=== PATIENT | female | born 1945 | race Caucasian/White ===

== ENCOUNTER → 2016-12-14 | Outpatient (CLI) | payer MEDICARE, BC ==
[~2016-12-14] MED LIST: AMLO2.5T2 PO; CLON0.5T3 PO; ESCI5TAB24 PO; METO25TA9 PO; TOLT1TAB2 PO
--- NOTE | 2016-12-14 10:35 | KCIC ---
EXAM: Bilateral digital screening mammogram. HISTORY: 71-year-old female presents for screening mammography. COMPARISON: 12/14/2015 and 11/23/2014 TECHNIQUE: Full field digital craniocaudal and mediolateral oblique views of both breasts are obtained. Computer-aided detection is applied. FINDINGS: Breast parenchymal composition: Level B - Scattered fibroglandular densities. There is no new suspicious mass, calcification or architectural distortion within either breast. IMPRESSION: BI-RADS Category 2: Benign findings. Annual mammography is recommended. This study was interpreted with the benefit of Computerized Aided Detection (CAD). Mammography is not 100% sensitive in detecting breast cancer. Therefore, a self breast exam and a clinical breast exam are very important. A negative mammogram does not negate a clinically suspicious finding and should not result in a delay in biopsying a clinically suspicious abnormality. The patient information was entered into the reminder system with a target for her next mammogram. Electronically signed by: Roro Bustamante (Dec 14, 2016 10:34:15)
--- NOTE | 2016-12-14 14:01 | KCIC ---
PROCEDURE Bone density. HISTORY Osteopenia, vitamin-D deficiency. Loss of height. Postmenopausal. COMPARISON Bone density 03/30/2014. FINDINGS Dual photon densitometry of the lumbar spine and left proximal femur is performed. Bone mineral density values are measured in grams per cm2. Lumbar spine, L1-L4, total bone mineral density is 0.996, T-score -0.5, Z-score 1.9. Bone mineral density has increased by 6.5 percent since the prior study. Left total femur bone mineral density 0.804, T-score -1.1, Z-score 0.6. No change from prior study. World Health Organization criteria for bone mineral density interpretation classify patient's as normal (T-score at or above -1.0), osteopenic (T-score between -1 and -2.5), or osteoporotic (T-score at or below -2.5). IMPRESSION Normal bone mineral density of the lumbar spine and mild osteopenia of the left femur. Electronically signed by: Tanvir Henson MD (Dec 14, 2016 14:00:18)
== END | disposition home or self-care (01) ==
LOC: KCIC MAMMO 09:32
PROVIDERS: ATTEND Family Medicine
DX: Z12.31 Encounter for screening mammogram for malignant neoplasm of breast (principal); Z78.0 Asymptomatic menopausal state; E55.9 Vitamin D deficiency, unspecified; R29.890 Loss of height; M85.88 Other specified disorders of bone density and structure, other site
CPT/HCPCS: 77080; G0202; 77067

== ENCOUNTER → 2016-12-27 | Day surgery (SDC) | payer MEDICARE, BC ==
[~2016-12-27] MED LIST changes: +ACET325T9 PO; +ASPI-482 PO; +ATOR10TA PO; +CALC-77 PO; +CLON0.25 PO; +DICY10CA53 PO; +DOCU-27 PO; +FENTANYL PF 100 MCG/2 ML VIAL. IV PRN; +HYDROMORPHONE 2 MG/ML VIAL. IV PRN; +IV RINGERS,LACTATED 1000ML 1,000 ML IV SCH; +LIDOCAINE 1% 1 ML SYRINGE. ID PRN; +LIDOCAINE 2% PF Vial for OR 5 ML VIAL. ONE; +MIRT30TA3 PO; +MORPHINE SULFATE 2 MG/ML DISP.SYRIN. IV PRN; +OMEG500C PO; +PROCHLORPERAZINE 10 MG/2 ML VIAL. IV PRN; +PROPOFOL 60 ML IV ONE; +RANI300T3 PO; +[UNRECOGNIZED DRUG - OTHER]; +mobic
[2016-12-27 11:55] VITALS: BP 136/66
--- NOTE | 2016-12-28 14:32 | PATHOLOGY ---
PATHOLOGY REPORT * * * * * * * * FINAL DIAGNOSIS: A. Colon biopsy, transverse colon: - Suggestive of microscopic (lymphocytic) colitis. B. Small bowel biopsy: - Segments of small intestine mucosa showing no significant pathologic abnormalities and gastric mucosa showing mild chronic inflammation. C. Gastric biopsy, antrum: - Chronic gastritis, mild. D. Esophageal biopsy, distal esophagus: - Segments of hyperplastic squamous esophageal mucosa consistent with reflux esophagitis. E. Esophageal biopsy, middle esophagus: - Segments of hyperplastic squamous esophageal mucosa consistent with reflux esophagitis. COMMENT: Sections of the transverse colon biopsy reveal segments of colonic mucosa showing mild chronic active inflammation without crypt architectural distortion or collagen deposition. Intraepithelial lymphocytes are increased. The changes are consistent with microscopic colitis, however, the diagnosis requires clinicopathologic correlation. Sections of the small bowel biopsy reveal segments of small intestine mucosa showing normal mucosal villi with no sprue-like changes or significant inflammatory changes. There are also segments of gastric mucosa showing mild chronic inflammation. Sections of the gastric antral biopsy show congestion and mild chronic inflammation. An immunoperoxidase stain for Helicobacter is obtained. No Helicobacter organisms are identified. Sections of the distal and middle esophageal biopsies appear similar and reveal segments of focally tangentially oriented hyperplastic squamous esophageal mucosa. The findings are consistent with reflux esophagitis. There is no evidence of Perez's change, dysplasia, or malignancy. (JPM:mgrae; d/t: 12/28/16) Special Stain Performed: Immunoperoxidase stain for Helicobacter (C1) REPORT ELECTRONICALLY SIGNED BY: Hernandez Lentz M.D. DATE/TIME: 12/28/2016 14:31 * * * * * * * * GROSS PATHOLOGY: A. Received in formalin, labeled "Frank Ewing-transverse colon biopsy" are 3 barrow-brown tissue fragments measuring 0.7 x 0. 3 x 0.1 cm in aggregate. Total A1. B. Received in formalin, labeled "Frank Ewing-small bowel biopsy" are 4 barrow-brown tissue fragments measuring 0.7 x 0.3 x 0.1 cm in aggregate. Total B1. C. Received in formalin, labeled " Frank Ewing-gastric antrum biopsy" are 2 barrow-brown tissue fragments measuring 0.4 x 0.3 x 0.1 cm in aggregate. Total C1. HP stain requested. D. Received in formalin, labeled " Frank Ewing-distal esophagus biopsy" are 2 barrow-brown tissue fragments measuring 0.4 x 0.2 x 0.1 cm in aggregate. Total D1. E. Received in formalin, labeled " Frank Ewing-mid esophagus biopsy" are 3 friable barrow-brown tissue fragments measuring 0.6 x 0.2 x 0.1 cm in aggregate. Total E1. ([facility]; 12/27/2016) INITIAL CPT CODE(S): A; 71920 B; 24196 C; 12064, 76899 D; 20925 E; 48506 Professional services performed by [facility] at [address] [address] Technical services performed by [facility] at [address] [place] [address], [address], [place] [address]. SPECIMEN(S) RECEIVED: A.Transverse colon biopsy B.Small bowel biopsy C.Gastric antrum D.Distal esophagus E.Mid esophagus CLINICAL HISTORY: CT abnormal, EGD dysphagia PATIENT: FRANK EWING /AGE: 503/27/1945 (Age: 71) PATIENT #: [id number] ALT CASE #: SPECIMEN COLLECTION DATE: 12/27/2016 SPECIMEN RECEIVED DATE: 12/27/2016 [facility] - [address] [place] [address] - PHONE: [phone] * * * END OF REPORT * * *
== END | disposition home or self-care (01) ==
LOC: ENDOS 09:35
PROVIDERS: ATTEND Internal Medicine Gastroenterology
DX: K64.0 First degree hemorrhoids (principal); K22.10 Ulcer of esophagus without bleeding; K44.9 Diaphragmatic hernia without obstruction or gangrene; Z72.89 Other problems related to lifestyle; Z79.82 Long term (current) use of aspirin
CPT/HCPCS: 43239; 45380; 88305; 88342; J2704; G0641

== ENCOUNTER → 2017-05-16 | Day surgery (SDC) | payer MEDICARE ==
[~2017-05-16] MED LIST changes: +AMLO5TAB2 PO; +DOCU-109 PO; -DOCU-27 PO; -ESCI5TAB24 PO; +ESCITALOPRAM OXA5 MG PO; -FENTANYL PF 100 MCG/2 ML VIAL. IV PRN; -HYDROMORPHONE 2 MG/ML VIAL. IV PRN; +HYDROmorphone 2 MG/ML VIAL IV PRN; +METO100T2 PO; +ONDANSETRON PF 4 MG/2 ML VIAL. IV PRN; +PROPOFOL 40 ML IV ONE; -PROPOFOL 60 ML IV ONE; +RANI150T6 PO; +ePHEDrine PF IN SALINE 50 MG/5 ML DISP.SYRIN IV ONE; +fentaNYL PF VIAL 100 MCG/2 ML VIAL IV PRN
[2017-05-16 10:02] VITALS: BP 148/77
--- NOTE | 2017-05-17 14:42 | PATHOLOGY ---
PATHOLOGY REPORT * * * * * * * * FINAL DIAGNOSIS: Esophageal biopsies, distal esophagus: - Segments of hyperplastic squamous esophageal mucosa consistent with reflux esophagitis. (JPM:hiram; 05/17/2017) COMMENT: Sections of the distal esophageal biopsy reveal segments of hyperplastic squamous esophageal mucosa. There are a few intraepithelial eosinophils. The findings are consistent with reflux esophagitis. There is no evidence of Perez's change, dysplasia or malignancy. (JPM:hiram; 05/17/2017) REPORT ELECTRONICALLY SIGNED BY: Hernandez Lentz M.D. DATE/TIME: 05/17/2017 14:41 * * * * * * * * GROSS PATHOLOGY: Received in formalin labeled "Frank Ewing, distal esophagus," are two segments of barrow soft tissue measuring 0.1 and 0.3 cm in maximum dimension. The specimen is submitted entirely in cassette A1. (J[facility]; 05/16/17) INITIAL CPT CODE(S): A; 37265 Professional services performed [place] [address] Technical services performed by [facility] at [address] [place] [address]. SPECIMEN(S) RECEIVED: A.Distal esophagus CLINICAL HISTORY: History of esophageal ulcer PATIENT: FRANK EWING /AGE: 503/27/1945 (Age: 72) PATIENT #: [id number] ALT CASE #: SPECIMEN COLLECTION DATE: 05/16/2017 SPECIMEN RECEIVED DATE: 05/16/2017 [facility] - [address] [place] [address] - PHONE: [phone] * * * END OF REPORT * * *
== END | disposition home or self-care (01) ==
LOC: ENDOS 07:58
PROVIDERS: ATTEND Internal Medicine Gastroenterology
DX: K21.0 Gastro-esophageal reflux disease with esophagitis (principal); K29.70 Gastritis, unspecified, without bleeding; K22.10 Ulcer of esophagus without bleeding; F41.9 Anxiety disorder, unspecified; E66.9 Obesity, unspecified; E78.00 Pure hypercholesterolemia, unspecified; F32.9 Major depressive disorder, single episode, unspecified; Z68.45 Body mass index [BMI] 70 or greater, adult; Z80.41 Family history of malignant neoplasm of ovary; Z80.0 Family history of malignant neoplasm of digestive organs; Z72.89 Other problems related to lifestyle; Z87.891 Personal history of nicotine dependence
CPT/HCPCS: 43239; 88305; J2704

== ENCOUNTER → 2017-07-10 | Outpatient (CLI) | payer MEDICARE ==
[2017-05-16 10:02] VITALS: BP 148/77
[~2017-07-10] MED LIST changes: -HYDROmorphone 2 MG/ML VIAL IV PRN; -IV RINGERS,LACTATED 1000ML 1,000 ML IV SCH; -LIDOCAINE 1% 1 ML SYRINGE. ID PRN; -LIDOCAINE 2% PF Vial for OR 5 ML VIAL. ONE; -MORPHINE SULFATE 2 MG/ML DISP.SYRIN. IV PRN; -ONDANSETRON PF 4 MG/2 ML VIAL. IV PRN; -PROCHLORPERAZINE 10 MG/2 ML VIAL. IV PRN; -PROPOFOL 40 ML IV ONE; -ePHEDrine PF IN SALINE 50 MG/5 ML DISP.SYRIN IV ONE; -fentaNYL PF VIAL 100 MCG/2 ML VIAL IV PRN
--- NOTE | 2017-07-10 10:27 | CARD ---
APPROVED REPORT EXAM: Two-dimensional and M-mode echocardiogram with Doppler and color Doppler. Other Information Quality : Average Rhythm : NSR INDICATION Dyspnea 2D DIMENSIONS RVDd2.9 (2.9-3.5cm)Left Atrium(2D)3.7 (1.6-4.0cm) IVSd0.9 (0.7-1.1cm)Aortic Root(2D)2.7 (2.0-3.7cm) LVDd4.7 (3.9-5.9cm)LVOT Diameter2.1 (1.8-2.4cm) PWd0.9 (0.7-1.1cm)LVDs3.4 (2.5-4.0cm) FS (%) 27.8 %SV55.2 ml LVEF(%)53.9 (>50%) Aortic Valve AoV Peak Ted.165.0cm/sAoV VTI34.5cm AO Peak GR.10.9mmHgLVOT Peak Ted.142.1cm/s LVOT VTI 30.19cmAO Mean GR.6mmHg GIULIANA (VMAX)2.38aw4DOW (VTI)3.00cm2 AI P 1/2 Shoh198av Mitral Valve MV E Dmosdgcq39.7cm/sMV DECEL NKYD495qp MV A Vanmkgga67.4cm/sMV E Mean Gr.1mmHg MV NUS29slW/A Ratio0.9 MV A Pufyksvz039coWMR (PHT)3.42cm2 TDI E/Lateral E'8.4E/Medial E'9.5 Pulmonary Valve PV Peak Rwmnlhca178.6cm/sPV Peak Grad.5mmHg RVOT VTI21.0cm Tricuspid Valve TR P. Ndcrezpk185cc/sRAP ONDRLZAY3kcHl TR Peak Gr.81arItBVJN55uhAi LEFT VENTRICLE The left ventricle is normal size. There is normal left ventricular wall thickness. Left ventricle sy stolic function is normal. The Ejection Fraction is 50-55%. There is normal LV segmental wall motion. The left ventricular diastolic function and filling is normal for age. RIGHT VENTRICLE The right ventricle is normal size. The right ventricular systolic function is normal. ATRIA The left atrium size is normal. The right atrium size is normal. The interatrial septum is intact wit h no evidence for an atrial septal defect or patent foramen ovale as noted on 2-D or Doppler imaging. AORTIC VALVE The aortic valve is normal in structure. The aortic valve is trileaflet. Doppler and Color Flow revea led mild aortic regurgitation. There is no significant aortic valvular stenosis. MITRAL VALVE The mitral valve is normal in structure and function. There is no mitral valve stenosis. Doppler and Color Flow revealed no mitral valve regurgitation noted. TRICUSPID VALVE The tricuspid valve is normal in structure and function. Doppler and Color Flow revealed trace to mil d tricuspid regurgitation. The PA pressure was estimated at 28 mmHg. There is no tricuspid valve sten osis. PULMONIC VALVE The pulmonic valve is not well visualized. Doppler and Color Flow revealed trace pulmonic valvular re gurgitation. There is no pulmonic valvular stenosis. GREAT VESSELS The aortic root is normal in size. The ascending aorta is normal in size. Pulmonary vein flow not wel l visualized. The IVC is normal in size and collapses >50% with inspiration. PERICARDIAL EFFUSION There is no evidence of significant pericardial effusion. Critical Notification Critical Value: No <Conclusion> Left ventricle systolic function is normal. The Ejection Fraction is 50-55%. There is normal LV segmental wall motion. Doppler and Color Flow revealed mild aortic regurgitation.
--- NOTE | 2017-07-10 14:54 | RAD ---
APPROVED REPORT Test Type: Exercise Stress Nurse/Tech: Annabella Hennessy R.N. Test Indications: Dyspnea Cardiac History: see ehr Medications: see ehr Medical History: see ehr Resting ECG: SR Resting Heart Rate: 93 bpm Resting Blood Pressure: 151/79mmHg Pretest Chest Pain: None Nurse/Tech Notes Dyspnea Consent: The procedure was explained to the patient in lay terms. Informed consent was witnessed. Leonel eout was entered into [employer]. History and Stress Test performed by Annabella Hennessy R.N. Stress Symptoms No chest pain or symptoms. POST EXERCISE Reason for Termination: Reached target heart rate, Dyspnea Target HR: Yes Max HR: 151 bpm 100% of Maximum Predicted HR: 124 bpm Exercise duration: 1:52 min:sec, 2 Stage Exercise capacity: 4.6METs Max Blood Pressure: 205/96mmHg Blood Pressure response to exercise: Normal blood pressure response during stress. Chest Pain: No. Arrhythmia: No. ST Change: No. INTERPRETATION Stress EKG Conclusion: Baseline EKG showed sinus rhythm. No ischemic changes at peak stress. No arr hythmias. Imaging Protocol IMAGE PROTOCOL: Rest Tc-99m/stress Tc-99m 1 day Rest: Stress: Viability: Radiopharm.Tc99m WtreoroswQa07d Sestamibi Inbv29hMf 32mCi Img Date 07/10/2017 07/10/2017 Inj-Img Cyzm19cmh. 60min. Rest Admin Site:IV - Left AntecubitalAdministrator:RT Subhash (R)(N) Stress Admin Site: IV - Left AntecubitalAdministrator: RT Subhash (R)(N) STRESS DATA End Diast. Vol.65.0mlAv. Heart Rate69.0bpm End Syst. Vol.8.0mlCO Index BSA0.0L/min Myocardial Zkbo815.0gEject. Nhlqrkla90.0% Stress Rates Pk. Fill Rate3.08EDV/secLVtime Pk. Fill 226.67msec Pk. Empty Rate5.03ESV/secLVtime Pk. Ktfhd103.61msec 11/20 Pk. Fill1.28EDV/sec Stress Scores Regional WT0.00Summed WT1.00 Regional WM0.00Summed WM0.00 Study quality was good. Left Ventricular size was Normal at Rest and Stress. Lung uptake was Normal. Left Ventricular ejection fraction is 88%. The rest and stress images show normal perfusion, normal contraction and thickening. LV Perf. Quant 17 Seg. SSS0.00 17 Seg. SRS0.00 17 Seg. SDS0.00 Stress Defect Extent (% LAD)0.00Rest Defect Extent (% LAD)0.00Rev. Defect Extent (% LAD)0.00 Stress Defect Extent (% LCX) 0.00Rest Defect Extent (% LCX)0.00Rev. Defect Extent (% LCX)0.00 Stress Defect Extent (% RCA)0.00Rest Defect Extent (% RCA)0.00Rev. Defect Extent (% RCA)0.00 Stress Defect Extent (% MYKE)0.00Rest Defect Extent (% MYKE)0.00Rev. Defect Extent (% MYKE)0.00 Conclusion 1. Treadmill exercise cardioisotope stress test did not show any evidence of ischemia or infarct. 2. Normal left ventricular systolic function with ejection fraction calculated at 88%. 3. Low risk for cardiac events.
== END | disposition home or self-care (01) ==
LOC: NM 07:35
PROVIDERS: ATTEND Internal Medicine Cardiovascular Disease
DX: I35.1 Nonrheumatic aortic (valve) insufficiency (principal); I49.5 Sick sinus syndrome; R60.0 Localized edema
CPT/HCPCS: 78452; 93017; 93306; 96374; 96376; A9500

== ENCOUNTER → 2017-12-16 | Outpatient (CLI) | payer MEDICARE | END | disposition home or self-care (01) | LOC: KCIC MAMMO 11:10 | DX: Z12.31 Encounter for screening mammogram for malignant neoplasm of breast (principal) | CPT/HCPCS: 77063; 77067 ==

== ENCOUNTER → 2018-06-02 | Outpatient (CLI) | payer MEDICARE | END | disposition home or self-care (01) | LOC: KCIC 12:54 | DX: M23.8X2 Other internal derangements of left knee (principal) | CPT/HCPCS: 73562 ==

== ENCOUNTER → 2018-12-18 | Outpatient (CLI) | payer MEDICARE ==
[2017-05-16 10:02] VITALS: BP 148/77
[~2018-12-18] MED LIST changes: -AMLO5TAB2 PO; +AMLO5TAB7 PO; +CLON0.5T11 PO; -CLON0.5T3 PO; +METO-239 PO; -METO100T2 PO; +METO100T7 PO; -METO25TA9 PO; +RANI150T21 PO; -RANI150T6 PO
--- NOTE | 2018-12-18 15:29 | KCIC ---
Bilateral digital screening mammograms with 3-D tomosynthesis: Reason for examination: Routine screening. Comparison is made to previous studies dated 12/16/2017, 12/14/2016 and 12/14/2015. Bilateral mammograms in CC and oblique projections were obtained with 2-D imaging and 3-D tomosynthesis imaging on a Siemens Inspiration unit and reviewed on the workstation. Interpretation was made with the benefit of CAD. The skin and nipples show no abnormalities. No abnormal axillary lymph nodes are seen. The breast parenchyma is heterogeneously dense. (Breast density: Category C.) There is suggestion of some nodularity present in the left breast probably at the 3:00 B position centrally and at the 11:00 B position. Recommend further evaluation with coned compression views and ultrasound. There are no other dominant masses, suspicious calcifications or architectural distortion. Benign calcifications are present. Impression: Nodular densities in the left breast. Recommend further evaluation with coned compression views and ultrasound. Your patient's mammogram demonstrates that she has dense breast tissue (breast density category C or D), which could hide abnormalities, and if she has other risk factors for breast cancer that have been identified, she might benefit from supplemental screening tests that may be suggested by you as her ordering physician. Dense breast tissue, in and of itself, is a relatively common condition. Therefore, this information is not provided to cause undue concern, but rather to raise your awareness and to promote discussion with your patient regarding the presence of other risk factors, in addition to dense breast tissue. Your patient's mammography results will be sent to her. BI-RAD Category 0: Incomplete. Needs additional imaging evaluation. "Our facility is accredited by the [employer] Mammography Program." This patient's information has been entered into a reminder system for the patient to be notified with the results of her examination and a target date for the next mammogram. Electronically signed by: Katie Rodriguez MD (12/18/2018 3:25 PM) [id number]
--- NOTE | 2018-12-18 16:21 | KCIC ---
EXAM: Dual energy x-ray absorptiometry (DEXA) 12/18/2018. HISTORY: Osteopenia, postmenopausal screening. COMPARISON: DEXA 03/30/2014 TECHNIQUE: Dual energy x-ray absorptiometry of the left hip was performed. Calculation of bone mineral density based on standard deviations above or below the expected young adult normal value (T-score) was completed. FINDINGS: The average bone mineral density associated with the total left proximal femuris 0.797 g/cm^2, corresponding with a T-score of -1.2, previously BMD 0.810 g/cm^2 with a T score of -1.1. Impression: Stable osteopenia in the left hip. Note: Definitions established by the World Health Organization: 1. Normal: T-score is -1.0 or above the expected mean for a young adult. 2. Osteopenia: T-score is between -1.0 and -2.5. 3. Osteoporosis: T-score is -2.5 or below. Electronically signed by: Jean-Claude Calabrese MD (12/18/2018 4:16 PM) [facility]
== END | disposition home or self-care (01) ==
LOC: KCIC DEXA 12:34
PROVIDERS: ATTEND Family Medicine
DX: Z12.31 Encounter for screening mammogram for malignant neoplasm of breast (principal); M85.852 Other specified disorders of bone density and structure, left thigh; Z78.0 Asymptomatic menopausal state
CPT/HCPCS: 77063; 77067; 77080

== ENCOUNTER → 2019-01-09 | Outpatient (CLI) | payer MEDICARE ==
[2017-05-16 10:02] VITALS: BP 148/77
[~2019-01-09] MED LIST changes: +AMLO5TAB10 PO; -AMLO5TAB7 PO; +RANI-376 PO; -RANI150T21 PO
--- NOTE | 2019-01-09 14:31 | KCIC ---
Left breast diagnostic digital mammograms: Reason for examination: Small nodular densities on screening mammogram. Comparison is made to mammographic exam dated 12/18/2018. Coned compression views were obtained in CC and oblique projections. The nodularity at the 1:00 position posteriorly appears to persist and further evaluation with ultrasound will follow. No other discrete nodules identified in the breast. IMPRESSION: Small nodular density centrally at the 1:00 position of the left breast. Ultrasound to follow. BI-RADS Category 0: Incomplete. Needs additional imaging evaluation. Left breast ultrasound: Ultrasound examination was performed formed in the areas of mammographic concern and at the left axilla. In the 1:00 position 1 cm from the nipple, there is a small 6.5 mm nodule consistent with a complicated cyst. In the 1:00 position 6 cm from the nipple, there appears to be a small 3.4 mm fibrocystic lesion. No other cystic or solid lesions are seen. No abnormal appearing lymph nodes are seen in the axilla. IMPRESSION: Fibrocystic lesions at the 1:00 position. No suspicious abnormality seen. Recommend 6 month follow-up with left breast mammograms and ultrasound. BI-RADS Category 3: Probably Benign. "Our facility is accredited by the [employer] Mammography Program." This patient's information has been entered into a reminder system for the patient to be notified with the results of her examination and a target date for the next mammogram. Electronically signed by: Katie Rodriguez MD (01/09/2019 2:28 PM) [id number]
== END | disposition home or self-care (01) ==
LOC: KCIC MAMMO 12:27
PROVIDERS: ATTEND Family Medicine
DX: N63.21 Unspecified lump in the left breast, upper outer quadrant (principal)
CPT/HCPCS: 76641; 77065

== ENCOUNTER → 2019-07-09 | Outpatient (CLI) | payer MEDICARE ==
[2017-05-16 10:02] VITALS: BP 148/77
[~2019-07-09] MED LIST changes: +CLON-77 PO; -CLON0.5T11 PO
--- NOTE | 2019-07-09 16:08 | KCIC ---
Left breast diagnostic digital mammograms: Reason for examination: 6 month follow-up for nodules. Comparison is made to previous studies dated 01/09/2019 and 12/18/2018. Interpretation is made with the benefit of CAD. The skin and nipple show no abnormalities. No abnormal appearing lymph nodes are seen in the axilla. Breast parenchyma shows scattered fibroglandular density. (Breast density category B.) There is some nodularity again seen at the 1:00 B position. No other masses or architectural distortions are seen. A few benign appearing calcifications are seen. IMPRESSION: Small parenchymal density at the 1:00 position of the left breast anteriorly. Ultrasound to follow. BI-RADS Category 0: Incomplete. Needs additional imaging evaluation. Left breast ultrasound: Comparison is made to previous study dated 01/09/2019. Ultrasound examination was performed in the areas of previous concern mammographically and sonographically and at the left axilla. In the 1:00 position 1 cm from the nipple, there continues to be 6.1 mm fibrocystic lesion which shows no significant change. There also continues to be a small 4.4 mm nodule at the 1:00 position 6 cm from the nipple is stable. There are no abnormal appearing lymph nodes seen. IMPRESSION: Benign-appearing fibrocystic lesions again seen in the left breast at the 1:00 position. Recommend continued 6 month follow-up with left breast ultrasound performed at the time of bilateral mammograms. BI-RADS Category 3: Probably Benign. "Our facility is accredited by the [employer] Mammography Program." This patient's information has been entered into a reminder system for the patient to be notified with the results of her examination and a target date for the next mammogram. Electronically signed by: Katie Rodriguez MD (07/09/2019 4:06 PM) [facility]
== END | disposition home or self-care (01) ==
LOC: KCIC MAMMO 12:50
PROVIDERS: ATTEND Family Medicine
DX: N63.21 Unspecified lump in the left breast, upper outer quadrant (principal); R92.1 Mammographic calcification found on diagnostic imaging of breast
CPT/HCPCS: 76641; 77065